=== PATIENT | female | born 1930 | race Caucasian/White ===

== ENCOUNTER 2016-06-05 14:23 | Inpatient (IN) | payer MEDICARE, BC ==
[~2016-06-05] VITALS: Ht 157.5 cm; Wt 57.5 kg
[2016-06-05] VITALS (11 sets, daily range): BP systolic 102–148; RESP 14–20; TEMP 97.4; Ht 157.5 cm; Wt 57.5 kg
[2016-06-05] MEDS ORDERED: ASPIRIN 81 MG CHEW TAB ONE (15:04)
[2016-06-05] MEDS ORDERED: NITROGLYCERIN 50 MG/250 ML IV PRN (20:05)
[2016-06-05] MEDS ORDERED: SODIUM CHLORIDE 0.9% FLUSH BAG 500 ML IV PRN (20:05)
[2016-06-05] MEDS ORDERED: MORPHINE 2 MG/ML SYR IV PRN (20:05)
[2016-06-05] MEDS ORDERED: SODIUM CHLORIDE 0.9% 1,000 ML IV SCH (20:05)
[2016-06-05] MEDS ORDERED: SALINE FLUSH 10 ML FLUSH PRN (20:05)
[2016-06-05] MEDS ORDERED: ASPIRIN 81 MG CHEW TAB PO ONE (20:05)
[2016-06-05] MEDS ORDERED: ONDANSETRON 4 MG VIAL IV PRN (20:05)
[2016-06-05] MEDS ORDERED: NITROGLYCERIN SL 0.4 MG TAB SL PRN (20:05)
[2016-06-05] MEDS ORDERED: LORAZEPAM 0.5 MG TAB PO PRN (20:05)
[2016-06-05] MEDS ORDERED: TRAMADOL 50 MG TAB PO PRN ×2 (20:05→20:25)
[2016-06-05] MEDS ORDERED: TEMAZEPAM 7.5 MG CAP PO PRN (20:05)
[2016-06-05] MEDS ORDERED: DOCUSATE SOD 100 MG CAP PO PRN (20:05)
[2016-06-05] MEDS ORDERED: Furosemide 20 MG TAB PO SCH (20:37)
[2016-06-05] MEDS: PHENIRAMINE EYE EACH SCH (20:39)
[2016-06-05] MEDS: NAPHAZOLINE EYE EACH SCH (20:39)
[2016-06-05] MEDS: [UNRECOGNIZED DRUG - REMARK] XX SCH (20:41)
[2016-06-05] MEDS ORDERED: APIXABAN 5 MG TAB PO SCH (21:00)
[2016-06-05] MEDS: APIXABAN 2.5 MG TAB PO SCH (21:48)
[2016-06-05] MEDS: amLODIPine 5 MG TAB PO SCH (21:48)
[2016-06-05] MEDS: FAMOTIDINE 20 MG TAB PO SCH (21:48)
[2016-06-05] MEDS: ROSUVASTATIN 5 MG TAB PO SCH (21:50)
[2016-06-06] VITALS (27 sets, daily range): BP systolic 91–136; RESP 12–27; TEMP 97.6–99.9
[2016-06-06] MEDS: LEVOTHYROXINE 0.2 MG TAB PO SCH (06:47)
[2016-06-06] MEDS ORDERED: Furosemide 20 MG/2 ML VIAL IV ONE ×2 (07:55→17:55)
[2016-06-06] MEDS: amLODIPine 5 MG TAB PO SCH (07:58)
[2016-06-06] MEDS: ASPIRIN EC 81 MG TAB PO SCH (07:58)
[2016-06-06] MEDS: FAMOTIDINE 20 MG TAB PO SCH ×2 (07:58→21:13)
[2016-06-06] MEDS: APIXABAN 2.5 MG TAB PO SCH ×2 (07:58→21:13)
[2016-06-06] MEDS: [UNRECOGNIZED DRUG - REMARK] XX SCH ×2 (08:00→19:36)
[2016-06-06] MEDS ORDERED: MAGNESIUM SULF 1 GM/100 ML 100 ML IV ONE (08:00)
[2016-06-06] MEDS ORDERED: KCL CR 10 MEQ CAP PO ONE (08:00)
[2016-06-06] MEDS: SALINE FLUSH 10 ML FLUSH SCH ×2 (08:42→19:36)
[2016-06-06] MEDS: NAPHAZOLINE EYE EACH SCH (09:00)
[2016-06-06] MEDS: PHENIRAMINE EYE EACH SCH (09:00)
[2016-06-06] MEDS ORDERED: BENZONATATE 100 MG CAP PO ONE (17:45)
[2016-06-06] MEDS: ROSUVASTATIN 5 MG TAB PO SCH (21:13)
[2016-06-07] VITALS (24 sets, daily range): BP systolic 81–134; RESP 16–31; TEMP 97.8–101.4
[2016-06-07] MEDS: ACETAMINOPHEN 325 MG TAB PO PRN ×2 (00:12→18:26)
[2016-06-07] MEDS: LEVOTHYROXINE 0.2 MG TAB PO SCH (06:06)
[2016-06-07] MEDS ORDERED: Furosemide 100 MG/10 ML VIAL IV ONE (08:00)
[2016-06-07] MEDS ORDERED: KCL 20 MEQ/15 ML UDC PO ONE ×2 (08:00→17:00)
[2016-06-07] MEDS: [UNRECOGNIZED DRUG - REMARK] XX SCH ×2 (08:00→20:00)
[2016-06-07] MEDS: BENZONATATE 100 MG CAP PO SCH ×2 (08:27→20:06)
[2016-06-07] MEDS: APIXABAN 2.5 MG TAB PO SCH ×2 (08:27→20:05)
[2016-06-07] MEDS: FAMOTIDINE 20 MG TAB PO SCH ×2 (08:27→20:05)
[2016-06-07] MEDS: amLODIPine 5 MG TAB PO SCH (08:28)
[2016-06-07] MEDS: SALINE FLUSH 10 ML FLUSH SCH ×2 (08:28→20:05)
[2016-06-07] MEDS: ASPIRIN EC 81 MG TAB PO SCH (08:28)
[2016-06-07] MEDS ORDERED: Furosemide 20 MG/2 ML VIAL IV SCH (09:00)
[2016-06-07] MEDS: NAPHAZOLINE EYE EACH SCH (09:00)
[2016-06-07] MEDS: PHENIRAMINE EYE EACH SCH (09:00)
[2016-06-07] MEDS: Furosemide 40 MG/4 ML VIAL IV SCH (17:26)
[2016-06-07] MEDS: ROSUVASTATIN 5 MG TAB PO SCH (20:06)
[2016-06-08] VITALS (26 sets, daily range): BP systolic 90–123; RESP 13–29; TEMP 98.8–100.4
[2016-06-08] MEDS: [UNRECOGNIZED DRUG - REMARK] XX SCH ×2 (08:00→20:00)
[2016-06-08] MEDS ORDERED: KCL 20 MEQ/15 ML UDC PO ONE (08:00)
[2016-06-08] MEDS: amLODIPine 5 MG TAB PO SCH (08:25)
[2016-06-08] MEDS: FAMOTIDINE 20 MG TAB PO SCH ×2 (08:25→20:13)
[2016-06-08] MEDS: Furosemide 40 MG/4 ML VIAL IV SCH ×2 (08:25→17:23)
[2016-06-08] MEDS: SALINE FLUSH 10 ML FLUSH SCH ×2 (08:26→20:13)
[2016-06-08] MEDS: ASPIRIN EC 81 MG TAB PO SCH (08:26)
[2016-06-08] MEDS: APIXABAN 2.5 MG TAB PO SCH ×2 (08:26→20:13)
[2016-06-08] MEDS: LEVOTHYROXINE 0.2 MG TAB PO SCH (08:26)
[2016-06-08] MEDS: BENZONATATE 100 MG CAP PO SCH ×2 (08:26→20:13)
[2016-06-08] MEDS: PHENIRAMINE EYE EACH SCH (08:59)
[2016-06-08] MEDS: NAPHAZOLINE EYE EACH SCH (08:59)
[2016-06-08] MEDS ORDERED: AMIODARONE 200 MG TAB PO SCH (09:00)
[2016-06-08] MEDS: AMIODARONE 200 MG TAB PO SCH ×2 (09:00→09:16)
[2016-06-08] MEDS: METOPROLOL TART 25 MG TAB PO SCH ×2 (09:16→20:13)
[2016-06-08] MEDS: LEVOFLOXACIN 500 MG TAB PO SCH (15:37)
[2016-06-08] MEDS: ROSUVASTATIN 5 MG TAB PO SCH (20:13)
[2016-06-09] VITALS (16 sets, daily range): BP systolic 104–120; RESP 18–29; TEMP 97.7–100.2
[2016-06-09] MEDS: LEVOTHYROXINE 0.2 MG TAB PO SCH (05:35)
[2016-06-09] MEDS: [UNRECOGNIZED DRUG - REMARK] XX SCH ×2 (08:00→20:00)
[2016-06-09] MEDS: SALINE FLUSH 10 ML FLUSH SCH ×2 (08:00→20:43)
[2016-06-09] MEDS: NAPHAZOLINE EYE EACH SCH (09:00)
[2016-06-09] MEDS: PHENIRAMINE EYE EACH SCH (09:00)
[2016-06-09] MEDS: METOPROLOL TART 25 MG TAB PO SCH ×2 (09:17→20:44)
[2016-06-09] MEDS: ASPIRIN EC 81 MG TAB PO SCH (09:17)
[2016-06-09] MEDS: FAMOTIDINE 20 MG TAB PO SCH ×2 (09:17→20:44)
[2016-06-09] MEDS: LEVOFLOXACIN 500 MG TAB PO SCH (09:17)
[2016-06-09] MEDS: BENZONATATE 100 MG CAP PO SCH ×2 (09:17→20:44)
[2016-06-09] MEDS: APIXABAN 2.5 MG TAB PO SCH ×2 (09:17→20:44)
[2016-06-09] MEDS: AMIODARONE 200 MG TAB PO SCH (09:18)
[2016-06-09] MEDS: Furosemide 20 MG TAB PO SCH (09:20)
[2016-06-09] MEDS: amLODIPine 5 MG TAB PO SCH (09:23)
[2016-06-09] MEDS: ROSUVASTATIN 5 MG TAB PO SCH (20:44)
[2016-06-10 02:37] VITALS: BP_SYST 120; TEMP 99.4
[2016-06-10] MEDS: LEVOTHYROXINE 0.2 MG TAB PO SCH (07:00)
[2016-06-10 07:58] VITALS: BP_SYST 112; TEMP 98.8
[2016-06-10 07:59] VITALS: RESP 18
[2016-06-10] MEDS: [UNRECOGNIZED DRUG - REMARK] XX SCH (08:00)
[2016-06-10] MEDS: NAPHAZOLINE EYE EACH SCH (09:00)
[2016-06-10] MEDS: PHENIRAMINE EYE EACH SCH (09:00)
[2016-06-10] MEDS: ASPIRIN EC 81 MG TAB PO SCH (10:46)
[2016-06-10] MEDS: amLODIPine 5 MG TAB PO SCH (10:46)
[2016-06-10] MEDS: FAMOTIDINE 20 MG TAB PO SCH (10:46)
[2016-06-10] MEDS: APIXABAN 2.5 MG TAB PO SCH (10:46)
[2016-06-10] MEDS: BENZONATATE 100 MG CAP PO SCH (10:46)
[2016-06-10] MEDS: LEVOFLOXACIN 500 MG TAB PO SCH (10:46)
[2016-06-10] MEDS: SALINE FLUSH 10 ML FLUSH SCH (10:47)
[2016-06-10] MEDS: METOPROLOL TART 25 MG TAB PO SCH (10:47)
[2016-06-10] MEDS: Furosemide 20 MG TAB PO SCH (10:47)
[2016-06-10 11:37] VITALS: BP_SYST 101; TEMP 97.7
[2016-06-10 11:38] VITALS: RESP 20
[2016-06-10 16:27] VITALS: BP_SYST 101; RESP 20; TEMP 97.7
[2016-06-10] MEDS ORDERED: METOPROLOL TART 25 MG TAB PO SCH (21:00)
== END 2016-06-10 20:28 | disposition home health service (06) | DRG 291 ==
LOC: ENRESERVDT → ENRESERVTM → CANRESERV → ER 14:23 → ENPENDDIS 18:49 → EMR 18:49 → CCU 19:16 → PCU 06-09 11:57 → PCU2 06-10 02:37
PROVIDERS: ADMIT Internal Medicine Cardiovascular Disease; ATTEND Internal Medicine Cardiovascular Disease
DX: I11.0 Hypertensive heart disease with heart failure (principal); J18.9 Pneumonia, unspecified organism; R00.1 Bradycardia, unspecified; I48.0 Paroxysmal atrial fibrillation; Z79.01 Long term (current) use of anticoagulants; I50.33 Acute on chronic diastolic (congestive) heart failure; E03.9 Hypothyroidism, unspecified; E78.5 Hyperlipidemia, unspecified; Z87.891 Personal history of nicotine dependence
CPT/HCPCS: 36415; 71010; 80048; 80053; 80061; 81001; 82550; 82553; 83735; 83880; 84439; 84443; 84484; 85025; 85379; 85610; 85730; 87804; 93005; 93306

== ENCOUNTER 2016-06-13 14:06 | Emergency (ER) | payer MEDICARE, BC | END 2016-06-13 17:26 | disposition home or self-care (01) | LOC: ER 14:06 | DX: M54.2 Cervicalgia (principal); M79.602 Pain in left arm; M79.601 Pain in right arm | CPT/HCPCS: 36415; 71010; 72050; 80053; 81003; 82553; 84484; 85025; 85610; 85730; 93005 ==